=== PATIENT | female | born 1975 | race Caucasian/White ===

== ENCOUNTER 2017-10-21 16:12 | Observation (INO) ==
--- NOTE | 2017-10-21 16:25 | Emergency Department Note ---
Disposition Clinical Impression: TIA (transient ischemic attack) Qualifiers: Transient cerebral ischemia type: unspecified Qualified Code(s): G45.9 - Transient cerebral ischemic attack, unspecified Disposition: Admitted As Inpatient Condition: Good Referrals: Christofer Cancino MD [Primary Care Provider] - Forms: ED Satisfaction Letter Time of Disposition: 16:55 Neuro HPI - General Chief Complaint: ED Neuro Symptoms/Deficit Stated Complaint: "Neuro Sx" Time Seen by Provider: 10/21/17 16:16 Source: patient Mode of arrival: wheelchair Limitations: no limitations Nursing Notes Reviewed: Yes Vital Signs Reviewed: Yes - History of Present Illness HPI Narrative: 42-year-old with acute onset of slurred speech and some left facial weakness that began 30 minutes prior to arrival. Patient was seen by her doctor yesterday and started on a water pill for peripheral edema. Onset of Symptoms Date: 10/21/17 Onset of Symptoms Time: 15:50 Symptom Onset Unknown: No Timing confirmed by: family member Location: speech History of same: No Severity: moderate Quality: weakness (Left facial weakness), other (Slurred speech) Symptoms Improving: No Improves with: none Worsens with: none Context: sudden onset On Anticoagulants: No Associated symptoms: Reports: other (Peripheral edema) Treatments Prior to Arrival: none - Related Data Home Medications: Home Medications Medication Instructions Recorded Confirmed ALPRAZolam [Xanax 0.25 MG Tablet] 0.25 mg PO TID 10/21/17 10/21/17 Escitalopram [Lexapro] 20 mg PO DAILY 10/21/17 10/21/17 Estrogens, Conjugated [Premarin] 1.25 mg PO DAILY 10/21/17 10/21/17 Furosemide [Lasix] 20 mg PO DAILY 10/21/17 10/21/17 Allergies/Adverse Reactions: Allergies Allergy/AdvReac Type Severity Reaction Status Date / Time No Known Allergies Allergy Verified 10/21/17 17:58 All systems ED: reviewed and negative except as stated. Constitutional: Denies: fever, chills, weakness, weight change Eyes: Denies: eye pain, eye discharge, vision change ENT ED: Denies: ear pain, throat pain, dental pain, hearing loss, epistaxis, congestion, dysphagia Cardiovascular: Denies: chest pain, palpitations, dyspnea on exertion, edema, syncope Respiratory: Denies: cough, dyspnea, wheezes, hemoptysis, stridor Gastrointestinal: Denies: abdominal pain, nausea, vomiting, diarrhea, constipation, hematemesis, melena, hematochezia Genitourinary: Denies: dysuria, frequency, hematuria, discharge Musculoskeletal: Denies: back pain, neck pain, arthralgia, myalgia Integumentary: Denies: rash, abrasion, lesions Neurological: Reports: weakness (Left facial), other (Slurred speech). Denies: headache, numbness, paresthesias, confusion, abnormal gait, vertigo Psychiatric: Denies: anxiety, depression, suicidal thoughts, homicidal thoughts , auditory hallucinations, visual hallucinations Endocrine: Denies: fatigue Hematological/Lymphatic: Denies: easy bleeding, easy bruising Allergic/Immunologic: Denies: facial swelling, urticaria Past Medical History - Past Medical History Medical history: Reports: hyperlipidemia, hypertension Psychiatric history: Reports: anxiety, depression - Social History Smoking Status: Current every day smoker Smokeless Tobacco Status: No Alcohol use: Reports: occasionally Drug use: Reports: none Physical Exam - General Limitations: no limitations General appearance: alert - Head Head exam: atraumatic, normocephalic, normal inspection - Eye Eye exam: Present: normal appearance, PERRL, EOMI - ENT ENT exam: normal exam, normal oropharynx, mucous membranes moist - Neck Neck exam: Present: normal inspection, full ROM, trachea midline - Chest Chest inspection: Present: normal inspection, symmetric chest wall rise - Respiratory Respiratory exam: Present: normal lung sounds bilaterally - Cardiovascular Cardiovascular exam: Present: regular rate, normal rhythm, normal heart sounds - Abdominal Exam Abdominal exam: Present: soft, Non-Tender. Absent: tenderness, distention, guarding, rebound, rigidity - Extremities Exam Extremities exam: Present: normal inspection, full ROM. Absent: tenderness, pedal edema - Expanded Lower Extremity Exam Neurovascular/Tendon exam: Present: motor deficit (Some facial weakness). Absent: sensory deficit, tendon deficit Gait: observed and normal - Back Exam Back exam: Present: normal inspection, full ROM. Absent: tenderness - Neurological Exam Neurological exam: Present: alert, oriented X3 - Psychiatric Psychiatric exam: Present: normal affect, normal mood - Skin Skin exam: Present: warm, dry, intact, normal color Course - Reevaluation(s) Reevaluation #1: 42-year-old who came in with acute onset of left-sided facial weakness and slurred speech. This occurred about 30 minutes prior to arrival. CT scan was negative. Her symptoms started to improve and basically were resolved at the end of her evaluation by [facility] stroke alert. They did not recommend TPA. They did recommend admission for evaluation of the TIA. Time: 17:35 - Consultations Consultation #1: Discussed with Dr. Robert PERALTA stroke alert she will evaluate the patient. Time: 16:38 Consultation #2: Dr. Robert PERALTA neurology evaluated the patient via [facility] stroke and determine the patient is not a TPA candidate but recommended admission for evaluation including MRI MRA. Time: 16:54 Consultation #3: Discussed with Dr. Lowe, admit Time: 17:34 Vital Signs Temperature 97.9 F 10/21/17 16:18 Pulse Rate 78 10/21/17 16:18 Respiratory Rate 22 10/21/17 16:18 Blood Pressure 153/108 10/21/17 16:18 O2 Sat by Pulse Oximetry 98 10/21/17 16:18 Temperature 97.9 F 10/21/17 16:18 Pulse Rate 68 10/21/17 18:02 Respiratory Rate 16 10/21/17 18:02 Blood Pressure 115/91 10/21/17 18:02 O2 Sat by Pulse Oximetry 98 10/21/17 18:02 Oxygen Delivery Oxygen Delivery Room Air Neuro Symptoms/Deficit - Lab Data Lab results reviewed: Yes I reviewed the patient's lab results. Result diagrams: 10/21/17 16:25 10/21/17 16:25 Lab Results 10/21/17 10/21/17 10/21/17 Range/Units 16:25 16:25 16:25 WBC 6.9 (4.3-11.1) K/mcL RBC 4.17 (3.82-4.97) M/mcL Hgb 12.8 (11.5-15.4) g/dL Hct 39.1 (35.3-44.9) % MCV 93.8 (83.0-100.0) fL MCH 30.7 (28.0-33.3) pg MCHC 32.7 (31.6-35.5) g/dL RDW 12.8 (11.5-14.5) % Plt Count 307 (140-400) K/mcL MPV 9.3 L (9.4-12.4) fL Immature Gran % 0.1 (0-4) % Seg Neutrophils % 48.0 % Lymphocytes % 42.2 % Monocytes % 7.8 % Eosinophils % 0.7 % Basophils % 1.2 % Neutrophils # 3.3 (1.6-8.9) K/mcL Lymphocytes # 2.9 (0.6-4.6) K/mcL Monocytes # 0.5 (0.0-1.3) K/mcL Eosinophils # 0.1 (0.0-0.6) K/mcL Basophils # 0.1 (0.0-0.2) K/mcL PT 9.0 L (9.4-12.1) Seconds INR 0.8 APTT 29.9 (26.0-36.0) Seconds Sodium 139 (136-145) mEq/L Potassium 3.7 (3.5-5.1) mEq/L Chloride 102 (98-107) mEq/L Carbon Dioxide 30 H (23-29) mEq/L BUN 8 (6-20) mg/dL Creatinine 0.72 (0.60-1.20) mg/dL Est GFR ( Amer) > 60 (> 60) Est GFR (Non-Af Amer) > 60 (> 60) BUN/Creatinine Ratio 11 (6-26) Glucose 101 (70-105) mg/dL Calculated Osmolality 286 (280-300) Calcium 9.5 (8.6-10.3) mg/dL Troponin I < 0.03 (< 0.04) ng/mL - Radiology Data Radiology results reviewed: Yes I reviewed the patient's radiology results. Head CT 10/21/17 16:22 IMPRESSION: No acute intracranial abnormality. D/ / 10/21/2017 16:59:26 Mayra Schreiber MD / ryan Interpreting Provider: Mayra Schreiber MD - EKG Data EKG attestation: Yes I reviewed and interpreted this EKG. EKG shows normal: sinus rhythm Rate: normal Rhythm: NSR, PVC's [place]/QRS: IVCD Interpretation: no acute changes NIH Stroke Scale - Level of Consciousness LOC: Alert - LOC Questions LOC Questions: Answers both correctly - LOC Commands LOC Commands: Performs both correctly - Best Gaze Best Gaze: Normal - Visual Visual: No visual loss - Facial Palsy Facial Palsy: Minor asymmetry on smiling, flattened nasolabial fold - Motor Arms Motor Arm-Left: No drift for 10 seconds Motor Arm-Right: No drift for 10 seconds - Motor Legs Motor Leg-Left: No drift for 5 seconds Motor Leg-Right: No drift for 5 seconds - Limb Ataxia Limb Ataxia: Normal, No Ataxia - Sensory Sensory: Normal - Best Language Best Language: No aphasia - Dysarthria Dysarthria: Mild, slurs some words - Extinction and Inattention Extinction and Inattention: Normal - NIHSS Total Score NIHSS Total Score: 2 TPA Checklist - Eligibilty for IV tPA 1. LKW equal to or less than 4.5 hours be before treatment: Yes 2. Clinical diagnosis of ischemic stroke causing deficit: No - LKW: 3-4.5 hrs Add. Warnings/Precautions Patient/family understanding: The patient/family members have been counseled and understood the risk, benefit , and alternatives of treatment.
[2017-10-21 16:38] LABS: Basophils # 0.1 K/mcL (0.0-0.2); Basophils % 1.2 %; Eosinophils # 0.1 K/mcL (0.0-0.6); Eosinophils % 0.7 %; Hematocrit 39.1 % (35.3-44.9); Hemoglobin 12.8 g/dL (11.5-15.4); Immature Granulocytes % 0.1 % (0-4); Lymphocytes # 2.9 K/mcL (0.6-4.6); Lymphocytes % 42.2 %; Mean Corpuscular HGB Conc 32.7 g/dL (31.6-35.5); Mean Corpuscular Hemoglobin 30.7 pg (28.0-33.3); Mean Corpuscular Volume 93.8 fL (83.0-100.0); Mean Platelet Volume 9.3 fL (9.4-12.4); Monocytes # 0.5 K/mcL (0.0-1.3); Monocytes % 7.8 %; Neutrophils # 3.3 K/mcL (1.6-8.9); Platelet Count 307 K/mcL (140-400); Red Blood Count 4.17 M/mcL (3.82-4.97); Red Cell Distribution Width 12.8 % (11.5-14.5)
[2017-10-21 16:43] LABS: INR 0.8
[2017-10-21 16:46] LABS: Activated Partial Thrombo Time 29.9 Seconds (26.0-36.0)
[2017-10-21 16:57] LABS: Troponin I < 0.03 ng/mL (< 0.04)
[2017-10-21 17:02] LABS: BUN/Creatinine Ratio 11 (6-26); Blood Urea Nitrogen 8 mg/dL (6-20); Calcium 9.5 mg/dL (8.6-10.3); Carbon Dioxide 30 mEq/L (23-29); Chloride 102 mEq/L (98-107); Glucose 101 mg/dL (70-105); Osmolality,Calculated 286 (280-300); Potassium 3.7 mEq/L (3.5-5.1); Sodium 139 mEq/L (136-145); eGFR For African Americans > 60 (> 60); eGFR For Non-African Americans > 60 (> 60)
--- NOTE | 2017-10-21 20:25 | Internal Med History&Physical ---
<Radha Lamb - Last Filed: 10/21/17 20:24> Date of Encounter: 10/21/17 Time of Encounter: 20:16 Internal Medicine - H&P: HPI Chief complaint: facial swelling and drooping. Admitted From: Home Plans for Post Hospital Care: Home History of present illness: Ms. Bernard is a 42 year old female with a past medical history of hypertension , hyperlipidemia, and anxiety who presented to the ED with facial drooping and slurred speech. Patient states that at 3:30 PM today, she was out in the garden and began having difficulty speaking and the left side of her face was numb and tingling. She denies having trouble walking, changes in vision, chest pain, or weakness at this time. She came to the ED immediately. By the time [facility] had evaluated her symptoms had resolved about 4:30pm. She has been taking estrogen for 4 months due to prior hysterectomy and smokes 1ppd for the last 1.5 years. Of note she went to her PCP due to new onset bilateral lower extremity edema for the past month and was started on Lasix 10/09/17. Denies LE pain or redness. Recent bilateral lower extremity US on 10/10/17 was negative. She denies history of blood clots. She has had associated palpitations when lying flat, increased fatigue, and intermittent blurred vision for the last month. Denies orthopnea, syncope, and hematochezia. No family history of strokes or clotting disorders. Past Med Surg Social Fam HX - Past Medical History Source: patient, old records reviewed Medical history: hyperlipidemia, hypertension Psychiatric history: anxiety, depression - Past Surgical History Surgical History: hysterectomy - Social History Smoking Status: Current every day smoker Packs per day: 1 Smokeless Tobacco Status: No Alcohol use: occasionally Drug use: none - Family History Mother Living Status: Still Living Hx Family Cardiac Disorders: Yes ([place] ) Internal Medicine - H&P: Meds ALPRAZolam [Xanax 0.25 MG Tablet] 0.25 mg PO TID 10/21/17 [History] Escitalopram [Lexapro] 20 mg PO DAILY 10/21/17 [History] Estrogens, Conjugated [Premarin] 1.25 mg PO DAILY 10/21/17 [History] Furosemide [Lasix] 20 mg PO DAILY 10/21/17 [History] 3 Allergy/AdvReac Type Severity Reaction Status Date / Time No Known Allergies Allergy Verified 10/21/17 17:58 All Systems PM: A 10-system review of systems was performed and is negative for pertinent findings except as documented above in the HPI. - Constitutional Vitals: Temp Pulse Resp BP Pulse Ox 97.9 F 69 16 121/101 99 10/21/17 16:18 10/21/17 20:02 10/21/17 20:02 10/21/17 20:02 10/21/17 20:02 Exam: Constitutional: Alert, in no acute distress, well nourished, well developed. Head: Normocephalic, atraumatic, lesions or scars Heart: Normal, regular rate and rhythm, no murmurs Lungs: Clear to auscultation, no wheezes, rales, or rhonchi Abdomen: Soft, nondistended, nontender, and no masses palpable, , no guarding or rigidity. Extremities: + 2 pitting edema lower extremities bilaterally, no reddness. No clubbing, cyanosis, , radial pulse +2/4, capillary refill <2sec. Skin: Skin warm and dry, no lesions, no rashes, no jaundice Neurologic: mild left facial drooping, no pronator drift, no focal deficits, strength within normal limits in all extremities Psych: Cooperative with exam, good eye contact, cognitive function intact, judgment good insight good, speech clear, thought process logical, and goal directed Internal Med - H&P Results - Labs CBC & Chem 7: 10/21/17 16:25 10/21/17 16:25 Labs: Short CBC 10/21/17 Range/Units 16:25 WBC 6.9 (4.3-11.1) K/mcL Hgb 12.8 (11.5-15.4) g/dL Hct 39.1 (35.3-44.9) % Plt Count 307 (140-400) K/mcL Neutrophils # 3.3 (1.6-8.9) K/mcL BMP 10/21/17 16:25 Sodium 139 Potassium 3.7 Chloride 102 Carbon Dioxide 30 H BUN 8 Creatinine 0.72 Glucose 101 Calcium 9.5 Cardiac Enzymes 10/21/17 Range/Units 16:25 Troponin I < 0.03 (< 0.04) ng/mL - Impressions ITS Impressions Head CT 10/21/17 16:22 IMPRESSION: No acute intracranial abnormality. D/ / 10/21/2017 16:59:26 Mayra Schreiber MD / ryan Interpreting Provider: Mayra Schreiber MD - Assessment and plan (1) TIA (transient ischemic attack) Current Visit: Yes Status: Acute Assessment and plan: Patient had left-sided facial drooping and slurred speech for about 1 hour then speech completely resolved. Mild left sided facial drooping still present. Risk factors for stroke include: smoking, estrogen use, HLP, hx of HTN. ABCD2 score = 3, Low risk with 2 day stroke risk 1.0%. [facility] evaluation completed with recommendations for admission at [facility] with MRI/MRA. Plan: - initiated Aspirin 81mg daily - lipid panel pending - initiated Atorvastatin 40mg daily - MRI/ MRA neck and head pending - Echo pending - NIHSS protocol - continuous cardiac monitoring - stopping home estrogen and no nicotine patch given to eliminate risk factors - Consider consulting neurology pending MRI/MRA results Qualifiers: Transient cerebral ischemia type: unspecified Qualified Code(s): G45.9 - Transient cerebral ischemic attack, unspecified (2) Lower extremity edema Current Visit: Yes Status: Acute Assessment and plan: bilateral LE edema began 1 month ago with associated increase SOB while talking LE US negative for clots. Kidney function wnl. Will obtain Echo to evaluate for cardiac causes. (3) Heart palpitations Current Visit: Yes Status: Acute Assessment and plan: PVCs on EKG. Continuous cardiac monitoring. Echo pending. (4) DVT prophylaxis Current Visit: Yes Status: Acute Assessment and plan: Heparin (5) Anxiety Current Visit: Yes Status: Acute Assessment and plan: Will continue home SSRI and Xanax. - Time Spent With Patient Total time spent is greater than 50% in coordination of care (as documented) at patient's floor/unit and/or counseling patient: <Frank Pittman - Last Filed: 10/22/17 05:40> Date of Encounter: 10/22/17 Internal Medicine - H&P: HPI History of present illness: Ms. Bernard is a 42 year old female All Systems PM: A 10-system review of systems was performed and is negative for pertinent findings except as documented above in the HPI. - Constitutional Vitals: Temp Pulse Resp BP Pulse Ox 97.7 F 59 18 110/69 98 10/22/17 00:09 10/22/17 00:09 10/22/17 00:09 10/22/17 00:09 10/22/17 00:09 Internal Med - H&P Results - Labs CBC & Chem 7: 10/21/17 16:25 10/21/17 16:25 - Attending Attestation I have seen and examined this patient independently. I have discussed with resident physician Dr. Lamb regarding the management plan. Agree with the documentation - Assessment and plan (1) TIA (transient ischemic attack) Current Visit: Yes Status: Acute Qualifiers: Transient cerebral ischemia type: unspecified Qualified Code(s): G45.9 - Transient cerebral ischemic attack, unspecified (2) DVT prophylaxis Current Visit: Yes Status: Acute (3) Lower extremity edema Current Visit: Yes Status: Acute (4) Heart palpitations Current Visit: Yes Status: Acute (5) Anxiety Current Visit: Yes Status: Acute - Time Spent With Patient Total time spent is greater than 50% in coordination of care (as documented) at patient's floor/unit and/or counseling patient:
[2017-10-21] MEDS ORDERED: Gadolinium Contrast Agent (WT Based) IV PRN ×2 (22:01→23:10)
[2017-10-21] MEDS ORDERED: Naloxone 0.4 MG/ML INJ IVP PRN (22:08)
[2017-10-21] MEDS ORDERED: Acetaminophen 325 MG TABLET PO PRN (22:08)
[2017-10-21 22:56] LABS: Chol/HDL Ratio 2.7 (0-4.9)
[2017-10-21] MEDS: Aspirin 81 MG TAB.CHEW PO SCH (23:48)
[2017-10-21] MEDS: *HR* Heparin 5,000 UNIT/ML VIAL SQ SCH (23:48)
[2017-10-21] MEDS: ALPRAZolam 0.5 MG TABLET PO SCH (23:48)
[2017-10-22] MEDS: *HR* Heparin 5,000 UNIT/ML VIAL SQ SCH ×2 (05:49→18:45)
[2017-10-22 06:33] LABS: Alanine Aminotransferase 27 Units/L (7-52); Albumin 3.3 g/dL (3.5-5.7); Albumin/Globulin Ratio 1.7 (1.1-2.2); Alkaline Phosphatase 58 Units/L (34-104); Aspartate Amino Transferase 29 Units/L (13-39); BUN/Creatinine Ratio 11 (6-26); Bilirubin,Total 0.2 mg/dL (0.3-1.0); Blood Urea Nitrogen 7 mg/dL (6-20); Calcium 8.8 mg/dL (8.6-10.3); Carbon Dioxide 27 mEq/L (23-29); Chloride 106 mEq/L (98-107); Globulin 1.9 g/dL (2.4-3.5); Glucose 102 mg/dL (70-105); Osmolality,Calculated 288 (280-300); Potassium 4.2 mEq/L (3.5-5.1); Sodium 140 mEq/L (136-145); Total Protein 5.2 g/dL (6.4-8.9); eGFR For African Americans > 60 (> 60); eGFR For Non-African Americans > 60 (> 60)
[2017-10-22] MEDS: Furosemide 40 MG TABLET PO SCH (09:58)
[2017-10-22] MEDS: ALPRAZolam 0.5 MG TABLET PO SCH ×3 (09:59→20:59)
[2017-10-22] MEDS: Aspirin 81 MG TAB.CHEW PO SCH (09:59)
--- NOTE | 2017-10-22 16:09 | Neurology - Consult Note ---
Date of Encounter: 10/22/17 Time of Encounter: 16:06 Assessment and Plan (1) Acute cerebral infarction Current Visit: Yes Status: Acute There are several small scattered acute infarcts involving the right temporal lobe. There is no mass effect identified. However the fact that they are several, arouses suspicions for the possibility of an embolic source. She does have a PFO therefore this is a possibility. The other issue is that she was on estrogen supplements and is a cigarette smoker. She has had complete workup otherwise including MRA of the brain which does reveal symptoms stenosis of the left vertebral artery however this is not significant at this time. The question is whether or not she is a candidate for PFO closure. Given her age and the fact that we are not absolutely certain which risk factor caused this event: the combination of estrogen/smoking, or cardioembolic phenomenon involving the PFO, I would recommend being aggressive to determine whether or not she is indeed a candidate for PFO closure. Certainly the concern regarding smoking and estrogen supplements was discussed with her. She needs to discontinue both. Her neurologic exam is now normal and I am doubtful of any sequela. However believe we should be aggressive so that this does not happen again. Also recommend hypercoagulable workup. I will reevaluate her at your request. History of Present Illness HPI: The chart was reviewed, the patient was seen and examined. Ms. Bernard is a 42 year old right handed female who was seen for neurologic assessment secondary to acute speech arrest. She states that the episode occurred on 10/21/2017. At that time she was in the yard working when her doyle. She then experienced sudden onset of speech difficulty that lasted about an hour. She also experienced a bit of left facial numbness. She denied any associated weakness denied any associated headache. She was seen and evaluated here at [facility] where MR I scan of the brain with diffusion images revealed a few little scattered acute infarcts in the right temporal lobe. MRA scan of the brain revealed about 50% narrowing of the left vertebral artery, the remainder of the intracranial circulation was normal. The MRA of the neck was normal. Echocardiogram however does reveal a PFO. Another issue is that she does take estrogen supplements and is a smoker. At this juncture her deficits have completely resolved. Past Med Surg Social Fam HX - Past Medical History Medical history: hyperlipidemia, hypertension Psychiatric history: anxiety, depression - Past Surgical History Surgical History: hysterectomy - Social History Smoking Status: Current every day smoker Packs per day: 1 Smokeless Tobacco Status: No Alcohol use: occasionally Drug use: none - Family History Mother Name: Echo Serrano Family Member Ethnicity: Non- Living Status: Still Living Hx Family Cardiac Disorders: Yes ([place] ) Hx Family Respiratory Disorders: No Hx Family Cancer: No Hx Family GI Disorders: No Hx Family Genitourinary Disorders: No Hx Family Endocrine Disorder: No Hx Family Musculoskeletal Disorders: No Hx Family Neuromuscular Disorders: No Hx Family Neurologic Disorders: No Hx Family HEENT Disorders: No Hx Family Autoimmune Disorders: No Hx Family Reproductive Disorders: No Hx Family Psychosocial Disorders: No Hx Family Medical Disorders: No Father Name: Bobo Lopez Age: 68 Family Member Ethnicity: Non- Living Status: Still Living Hx Family Cardiac Disorders: No Hx Family Respiratory Disorders: No Hx Family Cancer: No Hx Family GI Disorders: No Hx Family Genitourinary Disorders: No Hx Family Endocrine Disorder: Yes Hx Family Musculoskeletal Disorders: No Hx Family Neuromuscular Disorders: No Hx Family Neurologic Disorders: No Hx Family HEENT Disorders: No Hx Family Autoimmune Disorders: No Hx Family Reproductive Disorders: No Hx Family Psychosocial Disorders: No Hx Family Medical Disorders: No Medications and Allergies ALPRAZolam [Xanax 0.25 MG Tablet] 0.25 mg PO TID 10/21/17 [History] Escitalopram [Lexapro] 20 mg PO DAILY 10/21/17 [History] Estrogens, Conjugated [Premarin] 1.25 mg PO DAILY 10/21/17 [History] Furosemide [Lasix] 20 mg PO DAILY 10/21/17 [History] 3 Allergy/AdvReac Type Severity Reaction Status Date / Time No Known Allergies Allergy Verified 10/21/17 17:58 All Systems: The remainder of the systems were reviewed and are negative Review of Systems: Balance of the systems review is negative. Physical Examination - Vital Signs Vital Signs: Initial Vital Signs Temp Pulse Resp BP Pulse Ox 97.9 F 78 22 153/108 98 10/21/17 16:18 10/21/17 16:18 10/21/17 16:18 10/21/17 16:18 10/21/17 16:18 - Neurologic Detailed motor examination: full strength in all major muscle groups Motor examination - right side: 5/5: deltoids, biceps, triceps, wrist flexion, wrist extension, heel packer, hip flexors, tibialis Anterior, quadriceps, toe extension (EHL), plantarflexion Motor examination - left side: 09/20: deltoids, biceps, triceps, wrist flexion, wrist extension, hip flexors, heel packer, quadriceps, tibialis Anterior, toe extension (EHL), plantarflexion Mental Status Examination: awake, alert, oriented to person, oriented to place, oriented to time, follows commands appropriately, answers questions appropriately, no agnosia, no aphasia, no aproxia Cranial nerve examination: PERRL, EOMI, visual feliciano intact, corneal reflexes brisk symmetrically, sensory to face intact, mastication intact, no facial asymmetry is present, no dysarthria, hearing is intact symmetrically, soft palate elevates bilaterally upon phonation, gag reflex intact, flexes SCM and trapezius muscles symmetrically with full power, tongue protrudes midline, no atrophy or facial fasiculations present Cerebellar examination: no dysmetria, performs finger to nose and heel to haas symmetrically without ataxia, no gait ataxia, no truncal ataxia, no difficulty with rapid alternating movements Results - Laboratory Findings CBC and BMP: 10/21/17 16:25 10/22/17 05:43 Abnormal lab findings: Abnormal lab results MPV 9.3 fL (9.4-12.4) L 10/21/17 16:25 PT 9.0 Seconds (9.4-12.1) L 10/21/17 16:25 Total Bilirubin 0.2 mg/dL (0.3-1.0) L 10/22/17 05:43 Serum Total Protein 5.2 g/dL (6.4-8.9) L 10/22/17 05:43 Albumin 3.3 g/dL (3.5-5.7) L 10/22/17 05:43 Globulin 1.9 g/dL (2.4-3.5) L 10/22/17 05:43 Triglycerides 265 mg/dL (< 150) H 10/21/17 22:29 VLDL Cholesterol, Calc 53 mg/dL (< 31) H 10/21/17 22:29 Consult Discharge Plan - Plan Instructions: Ischemic Stroke, Housing Assistant Property Manager (GEN) Referrals: Christofer Cancino MD [Primary Care Provider] -
--- NOTE | 2017-10-22 18:00 | Electrocardiograph Report ---
[address] [address] Test Date: 2017-10-21 Pat Name: Jayne Bernard Department: 104 Room: 2N1 Gender: F Software Engineer: : [id number] Requested By: Yoanna Lowe Order Number: [id number] Reading MD: Hernesto Barboza Measurements Intervals [place] Rate: 72 P: 62 SD: 147 QRS: 31 QRSD: 82 T: 34 QT: 404 QTc: 429 Interpretive Statements SINUS RHYTHM WITH OCCASIONAL VENTRICULAR PREMATURE COMPLEXES Electronically Signed On 10-22-2017 17:58:48 EDT by Hernesto Barboza
--- NOTE | 2017-10-22 19:58 | Internal Med Progress Note ---
Date of Encounter: 10/22/17 Time of Encounter: 12:00 - Assessment and plan (1) TIA (transient ischemic attack) Current Visit: Yes Status: Acute Assessment and plan: Patient presented with left-sided facial drooping and slurred speech for approximately 1 hour which resolved completely. Risk factors for stroke include : smoking, estrogen use, HLP, hx of HTN. ABCD2 score = 3, Low risk with 2 day stroke risk 1.0%. [facility] evaluation completed with recommendations for admission at [facility] with MRI/MRA. Neurology consulted MRI/MRA neck and had completed-there are several small scattered acute infarcts involving the right temporal lobe no mass effect identified. Echo had been completed which did show a PFO-neurology suspects possibility of embolic source- I did speak with Dr. Adkins he does advise-further investigation for PFO closure will require transfer to outlying facility. He also recommends continuation of aspirin and statin, hypercoagulable workup Qualifiers: Transient cerebral ischemia type: unspecified Qualified Code(s): G45.9 - Transient cerebral ischemic attack, unspecified (2) Lower extremity edema Current Visit: Yes Status: Acute Assessment and plan: Bilateral lower extremity edema which began approximately one month ago- underwent lower extremity ultrasound which was negative for clots hypercoagulable workup (3) Heart palpitations Current Visit: Yes Status: Acute Assessment and plan: Continue to monitor labs continuous cardiac monitoring Monitor electrolytes (4) Anxiety Current Visit: Yes Status: Acute Assessment and plan: Will continue home SSRI and Xanax. (5) DVT prophylaxis Current Visit: Yes Status: Acute Assessment and plan: Heparin - Time Spent With Patient Total time spent is greater than 50% in coordination of care (as documented) at patient's floor/unit and/or counseling patient: - Subjective Interval history: I did see and examine the patient at bedside earlier today. Presently patient is alert and appropriate following simple commands neurologically intact at this time denies any visual or auditory changes. I did review MRI MRA results with the patient verbalized understanding.-Echo pending at time of assessment awaiting neurology recommendation at time assessment - Constitutional Vitals: Temp Pulse Resp BP Pulse Ox 97.7 F 54 18 103/77 91 10/22/17 15:24 10/22/17 15:24 10/22/17 15:24 10/22/17 15:24 06/06/18 15:24 General appearance: Present: A&O X 3 - Head Head exam: Present: atraumatic, normocephalic - Eye Eye exam: Present: PERRL, conjuntiva pink, sclera anicteric Pupils: Present: PERRL - Neck Neck exam general surgery: Present: supple, trachea midline. Absent: lymphadenopathy - Respiratory Respiratory exam: Present: CTAB. Absent: accessory muscle use, rales, rhonchi, wheezes - Cardiovascular Cardiovascular exam: Present: RRR, +S1, +S2. Absent: diastolic murmur, gallop, rubs, systolic murmur - GI/Abdominal GI/Abdominal exam: Present: normal bowel sounds, soft, no peritoneal signs. Absent: distended, tenderness - Extremities Exam Extremities exam: Present: warm, radial pulses palpable and symmetrical. Absent : calf tenderness, cyanotic, pedal edema - Neurological Exam Neurological exam: Present: CN II-XII intact, oriented X3, no focal deficits. Absent: pronater drift, facial droop, speech deficit - Skin Skin exam: Present: dry, intact Internal Medicine: Result - Labs CBC & Chem 7: 10/21/17 16:25 10/22/17 05:43 Labs: BMP 10/22/17 05:43 Sodium 140 Potassium 4.2 Chloride 106 Carbon Dioxide 27 BUN 7 Creatinine 0.65 Glucose 102 Calcium 8.8 Liver Function 10/22/17 Range/Units 05:43 Total Bilirubin 0.2 L (0.3-1.0) mg/dL AST 29 (13-39) Units/L ALT 27 (7-52) Units/L Alkaline Phosphatase 58 (34-104) Units/L Albumin 3.3 L (3.5-5.7) g/dL - ABG Interpretation ABG results: PT/INR, D-dimer PT 9.0 Seconds (9.4-12.1) L 10/21/17 16:25 - Impressions Impressions Brain MRI 10/21/17 22:01 IMPRESSION: 1. Small area of increased DWI signal within the right temporal lobe cortex. Additional tiny area of increased DWI signal within right frontal lobe cortex. ADC signal abnormality is unclear. Findings may represent acute or subacute infarcts. No susceptibility artifacts to suggest intracranial hemorrhage. 2. A few scattered T2 hyperintense white matter lesions are nonspecific in this age group. 3. No high-grade stenosis or focal occlusion involving intracranial vasculature. No evidence of intracranial aneurysm. The findings were sent to the Radiology Results Communication Center at 9:59 am on 10/22/2017to be communicated to a licensed caregiver. D/ / 10/22/2017 10:10:57 Esvin Barrett MD / ryan Interpreting Provider: Esvin Barrett MD Head MRA 10/21/17 22:01 IMPRESSION: 1. Small area of increased DWI signal within the right temporal lobe cortex. Additional tiny area of increased DWI signal within right frontal lobe cortex. ADC signal abnormality is unclear. Findings may represent acute or subacute infarcts. No susceptibility artifacts to suggest intracranial hemorrhage. 2. A few scattered T2 hyperintense white matter lesions are nonspecific in this age group. 3. No high-grade stenosis or focal occlusion involving intracranial vasculature. No evidence of intracranial aneurysm. The findings were sent to the Radiology Results Communication Center at 9:59 am on 10/22/2017to be communicated to a licensed caregiver. D/ / 10/22/2017 10:10:57 Esvin Barrett MD / ryan Interpreting Provider: Esvin Barrett MD Neck MRA 10/21/17 22:01 IMPRESSION: 1. Mild atherosclerotic narrowing in the proximal left vertebral artery, just distal to the origin, with an estimated 50% stenosis. 2. Otherwise unremarkable MRA of the neck. D/ /22/2017 10:16:23 Scotty Mayers MD / jose martin Interpreting Provider: Scotty Mayers MD Echocardiogram 10/22/17 22:06 Impressions: LVEF 60%. Indeterminate diastolic function. Normal right ventricular structure and function. Mild mitral regurgitation. Mild tricuspid regurgitation. No pulmonary hypertension. There is a PFO by agitated saline contrast. Left Ventricular Wall Motion: Rest Echo Findings All wall segments showed normal motion. Findings: Study Quality * Technically adequate exam. ECG Findings * Normal sinus rhythm. Left Ventricle * LVEF 60%. * Normal LV chamber size, wall thickness and function. * Indeterminate diastolic function. Right Ventricle * Normal right ventricular structure and function. Left Atrium * Normal left atrial size. Right Atrium * Normal right atrial size. Aortic Valve * No aortic regurgitation. * Trileaflet aortic valve. * No aortic stenosis. Mitral Valve * Normal mitral valve structure. * No mitral stenosis. * Mild mitral regurgitation. Tricuspid Valve * Normal tricuspid valve structure. * Mild tricuspid regurgitation. * Estimated RA pressure is 3 mmHg. * Estimated RVSP is 22 mmHg. * No pulmonary hypertension. Pulmonic Valve * Pulmonic valve is not well visualized. * No pulmonic stenosis. * Trace pulmonic regurgitation. Pulmonary Artery * Pulmonary artery not well visualized. Aorta * Normally sized aortic root. Pericardium * There is no pericardial effusion present. Interatrial Septum * There is a PFO by agitated saline contrast, IVC * Normal IVC dimensions and inspiratory collapse. Consult Discharge Plan - Plan Instructions: Ischemic Stroke, Motor Coach Tour Operator (GEN) Referrals: Christofer Cancion MD [Primary Care Provider] -
[2017-10-23 04:19] LABS: Basophils # 0.1 K/mcL (0.0-0.2); Basophils % 0.7 %; Eosinophils # 0.1 K/mcL (0.0-0.6); Eosinophils % 0.8 %; Hematocrit 40.1 % (35.3-44.9); Hemoglobin 13.4 g/dL (11.5-15.4); Immature Granulocytes % 0.3 % (0-4); Lymphocytes # 2.6 K/mcL (0.6-4.6); Lymphocytes % 35.8 %; Mean Corpuscular HGB Conc 33.4 g/dL (31.6-35.5); Mean Corpuscular Hemoglobin 31.1 pg (28.0-33.3); Mean Platelet Volume 9.5 fL (9.4-12.4); Monocytes # 0.5 K/mcL (0.0-1.3); Monocytes % 6.7 %; Neutrophils # 4.1 K/mcL (1.6-8.9); Platelet Count 288 K/mcL (140-400); Red Blood Count 4.31 M/mcL (3.82-4.97); Red Cell Distribution Width 12.6 % (11.5-14.5); Segmented Neutrophils % 55.7 %
[2017-10-23 04:36] LABS: BUN/Creatinine Ratio 13 (6-26); Blood Urea Nitrogen 8 mg/dL (6-20); Calcium 9.2 mg/dL (8.6-10.3); Carbon Dioxide 29 mEq/L (23-29); Chloride 105 mEq/L (98-107); Glucose 102 mg/dL (70-105); Osmolality,Calculated 291 (280-300); Potassium 3.9 mEq/L (3.5-5.1); Sodium 141 mEq/L (136-145); eGFR For African Americans > 60 (> 60); eGFR For Non-African Americans > 60 (> 60)
[2017-10-23] MEDS: *HR* Heparin 5,000 UNIT/ML VIAL SQ SCH (06:17)
[2017-10-23] MEDS: ALPRAZolam 0.5 MG TABLET PO SCH (09:03)
[2017-10-23] MEDS: Aspirin 81 MG TAB.CHEW PO SCH (09:04)
[2017-10-23] MEDS: Furosemide 40 MG TABLET PO SCH (09:04)
[2017-10-23 11:33] VITALS: BP 130/84
--- NOTE | 2017-10-23 11:50 | Event Note ---
Date of Encounter: 10/23/17 Time of Encounter: 11:45 Patient seen and examined at the bedside. Assessment and plan of care also discussed with the nurse practitioner. Vital signs and imaging studies reviewed. No new neurological deficits on physical examination. Cardiovascular respiratory system examination within normal limits .rest of the exam is non- contributory She has subacute strokes in the frontal and parietal region on the right side and also has a new PFO on the latest echo. I personally spoke with the patient' s primary care physician Dr. Cancino who was failed and as to the next plans of care. As per neurology the patient can be discharged today on Plavix and statins. She will discontinue the use of her hormone to placement therapy and will need to be plugged into cardiology most likely at [facility] as per Dr. Cancino for PFO closure. He will also initiate a hypercoagulable workup on an outpatient basis and his office will be calling the patient to set up a appointment tomorrow to see her in the office. Patient is stable for discharge and we will need full. For further details about the discharge summary please refer to the nurse practitioner's note from today Plan of care also discussed in completion with the patient and her mother and the room.
--- NOTE | 2017-10-23 12:28 | Discharge Summary ---
- NOTES TO OUTPATIENT PROVIDER Notes to Outpatient Provider: Seen by neurology- she did have several small scattered acute infarcts involving the right temporal lobe- suspicious for embolic source- She does have a PFO which she will need to be evaluated by cardiology as outpatient to see if candidate for PFO closure. Stop estrogen therapy, smoking. Placed on Plavix and statin. hypercoaguable workup as outpatient Date of Encounter: 10/23/17 Time of Encounter: 12:25 - Discharge Diagnosis (1) TIA (transient ischemic attack) Priority: Secondary Status: Acute Qualifiers: Transient cerebral ischemia type: unspecified Qualified Code(s): G45.9 - Transient cerebral ischemic attack, unspecified (2) Lower extremity edema Priority: Secondary Status: Acute (3) Heart palpitations Priority: Secondary Status: Acute (4) Anxiety Priority: Secondary Status: Acute (5) Acute cerebral infarction Priority: Primary Status: Acute Hospital course: Ms. Bernard is a 42 year old female past medical history of hypertension hyperlipidemia anxiety presented to the emergency department with facial drooping and slurred speech which lasted approximately one hour and then resolved. She did come to the ER immediately upon onset of symptoms. She was evaluated by [facility] telemetry stroke team however her symptoms had resolved before assessment. Patient states that she has been taking estrogen for approximately 4 months due to a prior hysterectomy and that she smokes approximately 1 pack a day for the last year and a half. She had been seen by her PCP for new onset of bilateral lower extremity swelling. Had lower extremity ultrasound on which was negative for any blood clot. She did have associated symptoms of fatigue and palpitations. She did have a CT of her head no acute intracranial abnormality. MRI of head several small scattered acute infarcts involving the right temporal lobe -echo does show a PFO. EKG sinus rhythm with PVCs. Repeat EKG did show sinus bradycardia. She was seen by neurology and there was concern of cardioembolic source neurology is recommending patient stop smoking and stop estrogen supplements. As well as neurology recommending Plavix statin and evaluation for PFO closure with cardiology as well as hypercoagulable workup. I did discuss this case with neurology who advised the patient could be discharged if she were to follow-up with cardiology in timely manner within the week or so. I also discussed this case with Dr. Dominique he in turn spoke with Dr. Cancino who is patient's PCP to review case, and set up appointment tomorrow. She does have an appointment at 10 AM tomorrow. I did advise the patient to stop smoking which she states she will, offered smoking cessation aids however she declined at this time states "she can do it on her own." Advised patient to stop estrogen replacement therapy I gave the patient prescription for Plavix as well as atorvastatin. Patient verbalized understanding she is hemodynamically stable at this time and is ready for discharge Discharge discussed with: patient - Time Spent with Patient Total time spent providing and/or coordinating discharge services: - Discharge Medications Prescriptions: Atorvastatin [Lipitor] 40 mg PO HS #30 tablet Clopidogrel [Plavix] 75 mg PO DAILY #30 tablet Home Medications: ALPRAZolam [Xanax 0.25 MG Tablet] 0.25 mg PO TID 10/21/17 [History] Escitalopram [Lexapro] 20 mg PO DAILY 10/21/17 [History] Furosemide [Lasix] 20 mg PO DAILY 10/21/17 [History] Atorvastatin [Lipitor] 40 mg PO HS #30 tablet 10/23/17 [Rx] Clopidogrel [Plavix] 75 mg PO DAILY #30 tablet 10/23/17 [Rx] Allergies/Adverse Reactions: 3 Allergy/AdvReac Type Severity Reaction Status Date / Time No Known Allergies Allergy Verified 10/21/17 17:58 Date of admission: 10/21/17 20:33 Primary care physician: Christofer Cancino MD Consults: 10/22/17 11:18 Consult to Neurology [CONS] Routine Consulting Provider: Neu[facility] Reason for Consult: TIA sx - mri acute to subacute infarcts Time Notified: 11:19 Call Completed: Yes Discharging clinician: Fela Saunders Anticipated date of discharge: 10/23/17 - Constitutional Vitals: Temp Pulse Resp BP Pulse Ox 97.9 F 58 16 130/84 93 10/23/17 11:32 10/23/17 11:32 10/23/17 11:32 10/23/17 11:32 10/23/17 11:32 General appearance: Present: A&O X 3 - Head Head exam: Present: atraumatic, normocephalic - Eye Eye exam: Present: PERRL, conjuntiva pink, sclera anicteric Pupils: Present: PERRL - Neck Neck exam general surgery: Present: supple, trachea midline. Absent: lymphadenopathy - Respiratory Respiratory exam: Present: CTAB. Absent: accessory muscle use, rales, rhonchi, wheezes - Cardiovascular Cardiovascular exam: Present: RRR, +S1, +S2. Absent: diastolic murmur, gallop, rubs, systolic murmur - GI/Abdominal GI/Abdominal exam: Present: normal bowel sounds, soft, no peritoneal signs. Absent: distended, tenderness - Extremities Exam Extremities exam: Present: warm, radial pulses palpable and symmetrical. Absent : calf tenderness, cyanotic, pedal edema - Neurological Exam Neurological exam: Present: CN II-XII intact, oriented X3, no focal deficits. Absent: pronater drift, facial droop, speech deficit - Skin Skin exam: Present: dry, intact - Patient Status Disposition: Home, Self-Care Condition: Good Overall status at discharge: patient is back to baseline - Discharge Instructions Instructions: Atorvastatin (By mouth), Clopidogrel (By mouth), Ischemic Stroke , C Engineer (GEN) Follow Up With: Maverick Adkins DO [Partnered Physician] - 11/11/17 9:15 am Christofer Cancino MD [Primary Care Provider] - 10/29/17 2:30 pm - Diet and Activity Activity: resume usual activities as tolerated Diet: advance to your usual diet
--- NOTE | 2017-10-24 17:24 | Electrocardiograph Report ---
[place] [id number] Test Date: 2017-10-23 Pat Name: Jayne Bernard Department: 111 Room: 2N1 Gender: F Spanish Medical Interpreter: DEXTER : 1975 Requested By: Fela Saunders Order Number: [id number] Reading MD: Hernesto Barboza Measurements Intervals [place] Rate: 59 P: 8 [place]: 157 QRS: 21 QRSD: 85 T: 18 QT: 433 QTc: 433 Interpretive Statements SINUS BRADYCARDIA BASELINE ARTIFACT Electronically Signed On 10-24-2017 17:22:45 EDT by Hernesto Barboza
== END 2017-10-23 16:03 | disposition home or self-care (01) ==
LOC: 2SOUTHHOLD 16:12 → EMEROO 16:12 → 2SOUTHHOLD 20:58 → 2NENU 10-22 14:32
PROVIDERS: ADMIT Internal Medicine; ATTEND Internal Medicine